=== PATIENT | female | born 1960 | race Caucasian/White ===

== ENCOUNTER 2021-05-22 20:43 | Inpatient (IN) ==
[2021-05-22] MEDS ORDERED: Ipratropium/Albuterol Neb 3 ML ONE (20:55)
[2021-05-22] MEDS ORDERED: Vancomycin (wt based) 1,000 MG VIAL IV STA (20:59)
[2021-05-22] MEDS ORDERED: Piperacillin/Tazobactam 3.375 GM in Water for inj. (sterile) 20 ML IVP ONE (20:59)
[2021-05-22] MEDS ORDERED: methylPREDNISolone 125 MG/2 ML VIAL IVP ONE (21:03)
[2021-05-22 21:26] LABS: Basophils % 0.2 %; Hematocrit 39.1 % (35.3-44.9); Hemoglobin 13.3 g/dL (11.5-15.4); Immature Granulocytes % 0.2 % (0-4); Lymphocytes # 0.8 K/mcL (0.6-4.6); Lymphocytes % 9.7 %; Mean Corpuscular Hemoglobin 32.4 pg (28.0-33.3); Mean Corpuscular Volume 95.4 fL (83.0-100.0); Mean Platelet Volume 10.5 fL (9.4-12.4); Monocytes # 0.8 K/mcL (0.0-1.3); Monocytes % 9.3 %; Neutrophils # 6.5 K/mcL (1.6-8.9); Platelet Count 255 K/mcL (140-400); Red Cell Distribution Width 13.3 % (11.5-14.5); Segmented Neutrophils % 80.6 %; White Blood Count 8.1 K/mcL (4.3-11.1)
[2021-05-22] MEDS ORDERED: Ipratropium/Albuterol Neb 3 ML IH ONE (21:48)
[2021-05-22 22:05] LABS: BUN/Creatinine Ratio 19 (6-26); Blood Urea Nitrogen 21 mg/dL (6-20); Calcium 9.3 mg/dL (8.6-10.3); Carbon Dioxide 18 mEq/L (23-29); Chloride 96 mEq/L (98-107); Glucose 81 mg/dL (70-105); Osmolality,Calculated 268 (280-300); Potassium 4.8 mEq/L (3.5-5.1); Sodium 128 mEq/L (136-145); Troponin I < 0.03 ng/mL (< 0.04); eGFR For African Americans > 60 (> 60); eGFR For Non-African Americans 52 (> 60)
[2021-05-22] MEDS: 0.9 % Sodium Chloride 1,000 ML IVC SCH (22:40)
[2021-05-23] MEDS ORDERED: 0.9 % Sodium Chloride 1,000 ML IVC SCH (00:15)
[2021-05-23] MEDS ORDERED: Ondansetron 4 MG/2 ML VIAL IVP PRN (00:15)
[2021-05-23] MEDS ORDERED: Naloxone 0.4 MG/ML INJ IVP PRN (00:15)
[2021-05-23] MEDS ORDERED: Acetaminophen 325 MG TABLET PO PRN (00:15)
[2021-05-23 02:01] LABS: Hematocrit 35.8 % (35.3-44.9); Hemoglobin 11.8 g/dL (11.5-15.4); Mean Corpuscular Hemoglobin 32.2 pg (28.0-33.3); Mean Corpuscular Volume 97.8 fL (83.0-100.0); Mean Platelet Volume 8.6 fL (9.4-12.4); Platelet Count 214 K/mcL (140-400); Red Blood Count 3.66 M/mcL (3.82-4.97); Red Cell Distribution Width 13.5 % (11.5-14.5); White Blood Count 5.7 K/mcL (4.3-11.1)
[2021-05-23 02:18] LABS: BUN/Creatinine Ratio 18 (6-26); Blood Urea Nitrogen 18 mg/dL (6-20); Calcium 8.2 mg/dL (8.6-10.3); Carbon Dioxide 20 mEq/L (23-29); Chloride 102 mEq/L (98-107); Glucose 89 mg/dL (70-105); Osmolality,Calculated 275 (280-300); Potassium 4.2 mEq/L (3.5-5.1); Sodium 132 mEq/L (136-145); eGFR For African Americans > 60 (> 60); eGFR For Non-African Americans 56 (> 60)
[2021-05-23] MEDS: traZODone 50 MG TABLET PO SCH ×3 (03:40→20:35)
[2021-05-23] MEDS: clonazePAM 0.5 MG TABLET PO SCH ×3 (03:40→16:12)
[2021-05-23] MEDS: Gabapentin 100 MG CAPSULE PO SCH ×2 (03:43→20:34)
[2021-05-23] MEDS: Azithromycin 500 MG in 0.9 % Sodium Chloride 250 ML IVPB SCH (03:50)
[2021-05-23] MEDS: Ipratropium/Albuterol Neb 3 ML IH SCH ×6 (04:12→23:36)
[2021-05-23 04:24] LABS: VBG HCO3 23 mEq/L (21-27); VBG PCO2 32 mmHg (41-51); VBG PH 7.46 pH Units (7.32-7.42); VBG PO2 198 mmHg (25-50)
[2021-05-23] MEDS: MethylPREDNISolone 40 MG/ML VIAL IVP SCH ×3 (06:30→17:46)
[2021-05-23] MEDS: *HR* Heparin 5,000 UNIT/ML VIAL SQ SCH ×4 (06:31→20:55)
[2021-05-23] MEDS ORDERED: Ranolazine 500 MG TAB.ER.12H PO SCH (09:00)
[2021-05-23] MEDS: lamoTRIgine 25 MG TABLET PO SCH (11:29)
[2021-05-23] MEDS: Nicotine 21 MG PATCH.TD24 TD SCH (11:44)
[2021-05-23] MEDS: Budesonide/Formoterol 160/4.5 1 PUFF INH IH SCH ×2 (12:06→19:56)
[2021-05-23 15:01] LABS: Adenovirus Not Detected (Not Detect); Bordetella Pertussis Not Detected (Not Detect); Chlamydophila pneumoniae Not Detected (Not Detect); Coronavirus 229E Not Detected (Not Detect); Coronavirus HKU1 Not Detected (Not Detect); Coronavirus NL63 Not Detected (Not Detect); Coronavirus OC43 Not Detected (Not Detect); Human Metapneumovirus Not Detected (Not Detect); Human Rhinovirus/Enterovirus Not Detected (Not Detect); Influenza A Subtype 2009 H1 Not Detected (Not Detect); Influenza B Not Detected (Not Detect); Mycoplasma pneumoniae Not Detected (Not Detect); Parainfluenza Virus 1 Not Detected (Not Detect); Parainfluenza Virus 2 Not Detected (Not Detect); Parainfluenza Virus 3 DETECTED (Not Detect); Parainfluenza Virus 4 Not Detected (Not Detect); Respiratory Syncytial Virus Not Detected (Not Detect); SARS-CoV-2 Not Detected (Not Detect)
[2021-05-23] MEDS ORDERED: clonazePAM 0.5 MG TABLET PO PRN (16:28)
[2021-05-23] MEDS: lamoTRIgine 100 MG TABLET PO SCH (20:35)
[2021-05-23] MEDS: Magnesium Oxide 400 MG TABLET PO SCH (20:35)
[2021-05-23] MEDS: 0.9 % Sodium Chloride 1,000 ML IVC SCH (22:16)
[2021-05-24] MEDS: MethylPREDNISolone 40 MG/ML VIAL IVP SCH ×4 (01:19→17:30)
[2021-05-24] MEDS: Azithromycin 500 MG in 0.9 % Sodium Chloride 250 ML IVPB SCH (01:20)
[2021-05-24 03:02] LABS: Hemoglobin 11.3 g/dL (11.5-15.4); Mean Corpuscular HGB Conc 33.2 g/dL (31.6-35.5); Mean Corpuscular Volume 96.3 fL (83.0-100.0); Mean Platelet Volume 8.9 fL (9.4-12.4); Platelet Count 216 K/mcL (140-400); Red Blood Count 3.53 M/mcL (3.82-4.97); Red Cell Distribution Width 13.5 % (11.5-14.5); White Blood Count 4.3 K/mcL (4.3-11.1)
[2021-05-24 03:20] LABS: BUN/Creatinine Ratio 24 (6-26); Blood Urea Nitrogen 18 mg/dL (6-20); Carbon Dioxide 23 mEq/L (23-29); Chloride 111 mEq/L (98-107); Glucose 122 mg/dL (70-105); Magnesium 2.4 mg/dL (1.6-2.6); Osmolality,Calculated 293 (280-300); Phosphorous 3.5 mg/dL (2.7-4.5); Potassium 3.9 mEq/L (3.5-5.1); Sodium 140 mEq/L (136-145); eGFR For African Americans > 60 (> 60); eGFR For Non-African Americans > 60 (> 60)
[2021-05-24] MEDS: Ipratropium/Albuterol Neb 3 ML IH SCH ×5 (03:23→19:45)
[2021-05-24] MEDS: *HR* Heparin 5,000 UNIT/ML VIAL SQ SCH ×3 (05:13→21:26)
[2021-05-24] MEDS: Budesonide/Formoterol 160/4.5 1 PUFF INH IH SCH ×2 (07:20→19:46)
[2021-05-24] MEDS ORDERED: methylPREDNISolone 125 MG/2 ML VIAL IVP ONE (08:35)
[2021-05-24] MEDS ORDERED: (Linaclotide [Linzess] 290 MCG Capsule) PO SCH (09:00)
[2021-05-24] MEDS: Nicotine 21 MG PATCH.TD24 TD SCH (09:44)
[2021-05-24] MEDS: lamoTRIgine 25 MG TABLET PO SCH (13:03)
[2021-05-24] MEDS: Gabapentin 100 MG CAPSULE PO SCH (17:30)
[2021-05-24] MEDS: lamoTRIgine 100 MG TABLET PO SCH (21:23)
[2021-05-24] MEDS: Magnesium Oxide 400 MG TABLET PO SCH (21:24)
[2021-05-24] MEDS: traZODone 50 MG TABLET PO SCH (21:24)
[2021-05-24] MEDS: Ranolazine 500 MG TAB.ER.12H PO SCH (21:26)
[2021-05-25] MEDS: MethylPREDNISolone 40 MG/ML VIAL IVP SCH ×3 (00:30→12:32)
[2021-05-25] MEDS: Ipratropium/Albuterol Neb 3 ML IH SCH ×3 (03:51→07:14)
[2021-05-25 06:20] LABS: Hematocrit 35.6 % (35.3-44.9); Mean Corpuscular HGB Conc 33.7 g/dL (31.6-35.5); Mean Corpuscular Volume 97.8 fL (83.0-100.0); Mean Platelet Volume 8.7 fL (9.4-12.4); Platelet Count 220 K/mcL (140-400); Red Blood Count 3.64 M/mcL (3.82-4.97); Red Cell Distribution Width 13.4 % (11.5-14.5)
[2021-05-25 06:39] LABS: BUN/Creatinine Ratio 29 (6-26); Blood Urea Nitrogen 26 mg/dL (6-20); Calcium 9.4 mg/dL (8.6-10.3); Carbon Dioxide 28 mEq/L (23-29); Chloride 108 mEq/L (98-107); Glucose 116 mg/dL (70-105); Magnesium 2.5 mg/dL (1.6-2.6); Osmolality,Calculated 298 (280-300); Phosphorous 3.1 mg/dL (2.7-4.5); Potassium 4.1 mEq/L (3.5-5.1); Sodium 141 mEq/L (136-145); eGFR For African Americans > 60 (> 60); eGFR For Non-African Americans > 60 (> 60)
[2021-05-25 06:41] LABS: % Iron Saturation 31 % (15-50); Iron 76 mcg/dL (50-170); Transferrin 175 mg/dL (203-362)
[2021-05-25] MEDS: *HR* Heparin 5,000 UNIT/ML VIAL SQ SCH (06:45)
[2021-05-25 06:59] LABS: Ferritin 180 ng/mL (10-120)
[2021-05-25 07:03] LABS: Folate 6.4 ng/mL (3.0-16.0)
[2021-05-25] MEDS: Budesonide/Formoterol 160/4.5 1 PUFF INH IH SCH (07:15)
[2021-05-25] MEDS: lamoTRIgine 25 MG TABLET PO SCH (08:55)
[2021-05-25] MEDS: Nicotine 21 MG PATCH.TD24 TD SCH (08:56)
[2021-05-25] MEDS: Ranolazine 500 MG TAB.ER.12H PO SCH (08:56)
[2021-05-25] MEDS: Gabapentin 100 MG CAPSULE PO SCH (08:56)
[2021-05-25] MEDS ORDERED: Azithromycin 250 MG TABLET PO SCH (09:00)
[2021-05-25 11:06] VITALS: BP 119/79
== END 2021-05-25 12:30 | disposition home or self-care (01) | DRG 189 ==
LOC: EMEROOARM 20:43 → CDU 20:43 → SUATTDRO 23:54 → CDU 05-23 01:09 → SUATTDRO 05-23 20:06
PROVIDERS: ADMIT Internal Medicine; ATTEND Family Medicine